=== PATIENT | male | born 1980 | race Caucasian/White ===

== ENCOUNTER 2018-01-11 19:48 | Emergency (ER) | payer OTHER ==
[2018-01-11] MEDS: CYCLOBENZAPRINE 10 MG TAB PO (23:37)
[2018-01-11] MEDS: KETOROLAC 60 MG/2 ML VIAL (J1885) IM (23:37)
== END 2018-01-11 23:53 | disposition home or self-care (01) ==
LOC: M ED 19:48
DX: M62.830 Muscle spasm of back (principal); Z88.8 Allergy status to other drugs, medicaments and biological substances; Z91.013 Allergy to seafood
CPT/HCPCS: J1885